=== PATIENT | female | born 1990 | race Two or more races ===

== ENCOUNTER 2017-07-13 10:09 | Emergency (ER) | payer OTHER ==
[~2017-07-13] VITALS: Ht 167.6 cm; Wt 97.5 kg
--- NOTE | 2017-07-13 10:30 | NUR ---
PT CAME IN FOR VAGINAL BLEEDING. NOTED X 4 WEEKS. SEEN BY MD FOR EVAL. VSS. SAFETY AND COMFORT MEASURES PROVIDED. WILL MONITOR.
--- NOTE | 2017-07-13 10:40 | NUR ---
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
--- NOTE | 2017-07-13 11:52 | NUR ---
DPatient discharged to home in stable condition. Written and verbal after care instructions given. Patient verbalizes understanding of instruction.
[2017-07-13 11:55] VITALS: BP 141/89
== END 2017-07-13 11:56 | disposition home or self-care (01) ==
LOC: ER 10:16
DX: O20.9 Hemorrhage in early pregnancy, unspecified (principal); N92.0 Excessive and frequent menstruation with regular cycle; Z3A.08 8 weeks gestation of pregnancy
CPT/HCPCS: 36415; 84702; 99284; A4606; Z7610